=== PATIENT | male | born 1975 | race Two or more races ===

== ENCOUNTER 2023-07-30 13:38 | Emergency (ER) | payer OTHER ==
[~2023-07-30] VITALS: Ht 167.6 cm; Wt 81.8 kg
[2023-07-30 13:53] VITALS: TEMP 98.6
[2023-07-30] MEDS: IBUPROFEN 400 MG TABLET PO ONE (15:26)
[2023-07-30] MEDS: PERTUSS(ACELL),DIPH,TET/PF 0.5 ML SYRINGE [ADULT] IM. ONE (15:48)
[2023-07-30 16:29] VITALS: BP 130/68; PULSE 61; RESP 16
[2023-07-30] MEDS ORDERED: IBUP-1506 PO (16:36)
[2023-07-30] MEDS: BACITRACIN 0.9 GM PACKET OINTMENT TP ONE (17:17)
== END 2023-07-30 17:35 | disposition home or self-care (01) ==
LOC: EMS 13:38
DX: S80.812A Abrasion, left lower leg, initial encounter (principal); S99.912A Unspecified injury of left ankle, initial encounter; W19.XXXA Unspecified fall, initial encounter; Y93.89 Activity, other specified; Y92.89 Other specified places as the place of occurrence of the external cause; Y99.8 Other external cause status
CPT/HCPCS: 90471; 90715; 99284